=== PATIENT | female | born 1955 | race Hispanic/Latino ===

== ENCOUNTER 2018-06-04 20:18 | Emergency (ER) | payer MEDICARE, MEDICAID ==
--- NOTE | 2018-06-04 21:21 | C.PDOC ---
History Of Present Illness 63yo female, with history of depression, comes to ER for evaluation of lower back pain, radiating to her abdominal wall and right lower extremity gradually developed since today AM. She reports she tripped on a staircase and twisted her back while trying to hold onto the railing; she reports she initially did not feel pain but the symptoms worsened over time. Pain is aching, worse with movement. Pt denies a complete fall, head injury, loss of consciousness, neck pain, CP, SOB, dyspnea, diaphoresis, vomiting, diarrhea, UTI sx, denies weakness , sensory or vascular deficits to B/L LEs. Ambulate to Ed for evaluation, not in nay apparent distress. Time Seen by Provider: 06/04/18 20:35 Chief Complaint (Nursing): Back Pain History Per: Patient History/Exam Limitations: no limitations Onset/Duration Of Symptoms: Days, Gradual Current Symptoms Are (Timing): Still Present Quality Of Discomfort: "Pain" Previous Symptoms: None Associated Symptoms: denies: Incontinence, New Weakness, New Numbness Exacerbating Factor(s): Movement Additional History Per: Patient Past Medical History Reviewed: Historical Data, Nursing Documentation, Vital Signs Vital Signs: Last Vital Signs Temp 97.6 F 06/04/18 20:21 Pulse 87 06/04/18 20:21 Resp 16 06/04/18 20:21 BP 98/60 L 06/04/18 20:21 Pulse Ox 98 06/04/18 21:27 - Medical History PMH: Depression, Diabetes, HTN, Hypercholesterolemia Denies: Anxiety, Bipolar Disorder, Hepatitis, HIV, Hyperthyroidism, Hypothyroidism, Personality Disorder, Schizophrenia, Seizures, Sexually Transmitted Disease Surgical History: No Surg Hx Family History: States: No Known Family Hx - Social History Hx Tobacco Use: No Hx Alcohol Use: No Hx Substance Use: No - Immunization History Hx Tetanus Toxoid Vaccination: No Hx Influenza Vaccination: No Hx Pneumococcal Vaccination: No Review Of Systems Except As Marked, All Systems Reviewed And Found Negative. Constitutional: Negative for: Fever, Chills Cardiovascular: Negative for: Chest Pain Respiratory: Negative for: Cough, Shortness of Breath Gastrointestinal: Positive for: Other (abdominal wall pain). Negative for: Nausea, Vomiting Genitourinary: Negative for: Incontinence Musculoskeletal: Positive for: Back Pain, Leg Pain (right upper leg). Negative for: Neck Pain Neurological: Negative for: Weakness, Numbness, Headache, Dizziness Physical Exam - Physical Exam Appears: Well, Non-toxic, No Acute Distress Skin: Normal Color, Warm, Dry Head: Atraumatic, Normacephalic, No Swelling, No Abrasion, No Laceration Eye(s): bilateral: PERRL Nose: No Discharge Oral Mucosa: Moist, No Drooling Tongue: Normal Appearing Lips: Normal Appearing Neck: Normal ROM, Trachea Midline, No Midline Cervical Tenderness, No Paracervical Tenderness, No Step Off Deformity, Supple Chest: Symmetrical, No Tenderness Cardiovascular: Rhythm Regular Respiratory: No Decreased Breath Sounds, No Accessory Muscle Use, No Stridor, No Wheezing Gastrointestinal/Abdominal: Soft, No Tenderness, No Distention, No Guarding, No Rebound Back: No CVA Tenderness, No Vertebral Tenderness, Paraspinal Tenderness ( diffuse paralumbar tenderness), No Straight Leg Raising Extremity: Normal ROM (B/L UEs and LEs), Tenderness (tenderness to right posterior thigh), No Pedal Edema, No Calf Tenderness, No Deformity, No Swelling Neurological/Psych: Oriented x3, Normal Speech, Normal Cognition, Normal Motor, Normal Sensation, Normal Reflexes ED Course And Treatment O2 Sat by Pulse Oximetry: 98 (RA) Pulse Ox Interpretation: Normal Progress Note: Zofran and Tramadol given. XR lumbar spine and Urinalysis ordered. On re-evaluation, pt is afebrile, hemodynamicaly stable. Ambulatory in ED with stable gait. PulseOx 98% RA. Neck: Supple, (-) midline tenderness. Lungs: CTA B/L, BS equal B/L. Abd: benign, (-) guarding, (-) rebound. back: (- ) CVA tenderness. Neurologicaly intact. L-spine review (-) acute fx or sublux. UA- normal study. FSBS 89. Pt has clinical findings c/w low back strain, abdominal muscle strain. Pt advised and ref. to f/u with PMD in 2-3 days for re -eavl. return if any new changes. Disposition Counseled Patient/Family Regarding: Studies Performed, Diagnosis, Need For Followup, Rx Given - Disposition Referrals: Godwin Chao MD [Medical Doctor] - Disposition: HOME/ ROUTINE Disposition Time: 21:31 Condition: STABLE Additional Instructions: Light duty, avoid physical activity, heavy lifting for 1 week take medication as prescribed Follow up with PMD in 2-3 days for re-evaluation. return to ED if any worsening or new changes. Prescriptions: Methocarbamol [Robaxin] 500 mg PO TID #14 tab traMADol [Ultram] 50 mg PO TID #7 tab Instructions: Lumbar Muscle Strain, Abdominal Muscle Strain (DC) Forms: [employer] (Malagasy) - Clinical Impression Clinical Impression: Lumbar sprain, Abdominal muscle strain - PA / GROCERY CASHIER / Resident Statement MD/DO has reviewed & agrees with the documentation as recorded. - Scribe Statement The provider has reviewed the documentation as recorded by the Steve Gerard Provider Attestation: All medical record entries made by the Steve were at my direction and personally dictated by me. I have reviewed the chart and agree that the record accurately reflects my personal performance of the history, physical exam, medical decision making, and the department course for this patient. I have also personally directed, reviewed, and agree with the discharge instructions and disposition.
[2018-06-04 21:33] LABS: SQUAMOUS EPITHIAL 1 /hpf (0-5); URINE BACTERIA OCC (<OCC); URINE BILIRUBIN NEGATIVE (NEGATIVE); URINE BLOOD NEGATIVE (NEGATIVE); URINE CLARITY Hazy (Clear); URINE COLOR Yellow (YELLOW); URINE GLUCOSE (UA) 1+ mg/dL (Normal); URINE PROTEIN NEGATIVE (NEGATIVE); URINE UROBILINOGEN NORMAL mg/dL (0.2-1.0)
[2018-06-04 21:42] LABS: URINE LEUKOCYTE ESTERASE TRACE Leu/uL (Negative)
[2018-06-04 21:57] VITALS: BP 107/69; PULSE 57; RESP 18; TEMP 97.4; O2SAT 97
--- NOTE | 2018-06-05 08:58 | RAD ---
PROCEDURE: Radiographs of the Lumbar Spine. HISTORY: injury COMPARISON: No prior. FINDINGS: BONES: There is mild dextroscoliosis in the lumbar spine. There is normal alignment of the lumbar vertebral bodies. There is normal lumbar lordosis. There are age indeterminate superior endplate compression deformities in the T12 and L1 vertebral bodies. There is diffuse bone demineralization. DISC SPACES: There is mild multilevel degenerative disc disease, worse at L5-S1. OTHER FINDINGS: None. IMPRESSION: Age indeterminate superior endplate compression deformities in the T12 and L1 vertebral bodies.
== END 2018-06-04 22:04 | disposition home or self-care (01) ==
LOC: C.ER 20:18
DX: S33.5XXA Sprain of ligaments of lumbar spine, initial encounter (principal); S39.011A Strain of muscle, fascia and tendon of abdomen, initial encounter; W10.9XXA Fall (on) (from) unspecified stairs and steps, initial encounter; Y92.9 Unspecified place or not applicable; E11.9 Type 2 diabetes mellitus without complications

== ENCOUNTER 2018-09-04 18:14 | Emergency (ER) | payer MEDICARE, MEDICAID ==
[2018-09-04 18:39] VITALS: BP 109/67; PULSE 64; RESP 18; TEMP 98; O2SAT 99
--- NOTE | 2018-09-04 18:56 | C.PDOC ---
History Of Present Illness 63 year old female presents to the ED complaining of right thumb pain for 1 week. She states the pain started after she opened a can, denies any blunt trauma. Reports she has had trigger finger before, and currently she feels similar tightness and snap sensation in the finger. Otherwise patient denies any numbness, tingling, or weakness. Time Seen by Provider: 09/04/18 18:33 Chief Complaint (Nursing): Upper Extremity Problem/Injury History Per: Patient History/Exam Limitations: no limitations Onset/Duration Of Symptoms: Days Current Symptoms Are (Timing): Still Present Quality: Other (snap and lock sensation) Exacerbating Factor(s): Movement Past Medical History Reviewed: Historical Data, Nursing Documentation, Vital Signs Vital Signs: Last Vital Signs Temp 98.0 F 09/04/18 18:32 Pulse 64 09/04/18 18:32 Resp 18 09/04/18 18:32 BP 109/67 09/04/18 18:32 Pulse Ox 99 09/04/18 18:32 - Medical History PMH: Depression, Diabetes, HTN, Hypercholesterolemia Denies: Anxiety, Bipolar Disorder, Hepatitis, HIV, Hyperthyroidism, Hypothyroidism, Personality Disorder, Schizophrenia, Seizures, Sexually Transmitted Disease Family History: States: No Known Family Hx - Social History Hx Tobacco Use: No Hx Alcohol Use: No Hx Substance Use: No - Immunization History Hx Tetanus Toxoid Vaccination: No Hx Influenza Vaccination: No Hx Pneumococcal Vaccination: No Review Of Systems Except As Marked, All Systems Reviewed And Found Negative. Constitutional: Negative for: Fever Musculoskeletal: Positive for: Hand Pain (to right 1st digit, + lock/snap sensation) Skin: Negative for: Rash, Lesions Neurological: Negative for: Weakness, Numbness, Incoordination, Other (tingling) Physical Exam - Physical Exam Appears: Well, Non-toxic, No Acute Distress Skin: Warm, Dry, No Rash Head: Atraumatic, Normacephalic Eye(s): bilateral: Normal Inspection Oral Mucosa: Moist Neck: Normal ROM Chest: Symmetrical Respiratory: No Accessory Muscle Use Extremity: Tenderness (Mild tenderness to the right PIP and MCP 1st digit), Capillary Refill (less than 2 sec), No Deformity, No Swelling, Other (Limited movement, +snap and lock when flexing right first digit) Pulses: Left Radial: Normal, Right Radial: Normal Neurological/Psych: Oriented x3, Normal Speech, Normal Motor, Normal Sensation ED Course And Treatment O2 Sat by Pulse Oximetry: 99 (RA) Pulse Ox Interpretation: Normal Medical Decision Making Medical Decision Making: Impression: Trigger finger Plan: --60 mg prednisone PO Patient remains afebrile alert and oriented with stable vital signs during ER evaluation. Provided with prescription for prednisone. States she already has thumb spica splint from before. Provided referral for orthopedist, educated regarding the importance of follow up. Disposition Counseled Patient/Family Regarding: Diagnosis, Need For Followup, Rx Given - Disposition Referrals: Kacey Belcher MD [Staff Provider] - [facility] [Outside] Disposition: HOME/ ROUTINE Disposition Time: 18:55 Condition: GOOD Additional Instructions: You may call financial cost analyst service for any assistance [phone]. Follow up with orthopedic for further evaluation. Take medications as prescribed Prescriptions: predniSONE [predniSONE Tab] 40 mg PO DAILY #10 tab Instructions: Trigger Finger (DC) Forms: [employer]. (Japanese) - POA Present On Arrival: None - Clinical Impression Clinical Impression: Thumb pain, Trigger finger - PA / PREPARATION CENTER COORDINATOR / Resident Statement MD/DO has reviewed & agrees with the documentation as recorded. - Scribe Statement The provider has reviewed the documentation as recorded by the Scribe (Kiara Pace) All medical record entries made by the Scribe were at my direction and personally dictated by me. I have reviewed the chart and agree that the record accurately reflects my personal performance of the history, physical exam, medical decision making, and the department course for this patient. I have also personally directed, reviewed, and agree with the discharge instructions and disposition.
== END 2018-09-04 19:14 | disposition home or self-care (01) ==
LOC: C.ER 18:14
DX: M65.311 Trigger thumb, right thumb (principal); M79.644 Pain in right finger(s)